=== PATIENT | male | born 1965 | race Caucasian/White ===

== ENCOUNTER → 2016-08-17 | Day surgery (SDC) | payer OTHER ==
[~2016-08-17] MED LIST: BUPIVACAINE HCL PF 0.75% 30 ML VIAL ONE; CLINDAMYCIN PHOS 600 MG/4 ML VIAL ONE; LACTATED RINGER'S 1000 ML INJ 1,000 ML ONE; LIDOCAINE 1.5%/EPINEPHrine 1:200,000 PF SOLN 30 ML AMP ONE; MIDAZOLAM HCL 5 MG/ML VIAL (1 ML) ONE; ONDANSETRON HCL 4 MG/2 ML VIAL IV PUSH ONE; PROPOFOL 500 MG/50 ML BTL IV ONE; VANCOMYCIN HCL 1000 MG VIAL ONE
--- NOTE | 2016-08-17 22:36 | MP ---
cc: LATOSHA BURGOS MD DATE OF SURGERY 08/17/16 PREOPERATIVE DIAGNOSIS Left shoulder rotator cuff tear left shoulder impingement syndrome POSTOPERATIVE DIAGNOSES Left shoulder rotator cuff tear left shoulder impingement syndrome PROCEDURE 1. Left shoulder arthroscopic revision rotator cuff repair 2. Left shoulder arthroscopic subacromial decompression. SURGEON Dr. Jody Burgos CHIEF BUSINESS DEVELOPMENT OFFICER LILI Little ANESTHESIA General with an interscalene block. REVIEW OF SYSTEMS Less than 10 mL COMPLICATIONS None. IMPLANTS USED Arthrex JUSTIFICATION This patient is a 50-year male who injured his left shoulder. He has had a previous left shoulder rotator cuff repair performed, but this repair has failed. He has had severe progressive clinical pain and weakness and also MRI confirmation of full-thickness failed rotator cuff repair with a full-thickness tear and retraction. The patient was counseled as to risks, benefits and alternatives to the above named proposed surgical procedure and he did wish to proceed with surgery. PROCEDURE IN DETAIL A written consent was obtained. The patient identified by name, scalene block anesthesia administered to left upper extremity by the anesthesiologist. The patient taken to the operating room and general anesthesia was administered as well as 600 mg of IV clindamycin and 1 gram of IV vancomycin. He does have a PENICILLIN ALLERGY. The patient was carefully turned to a right lateral decubitus position. A lateral arm roll was placed. All bony prominences and pressure points were well padded. The patient's neck was carefully monitored and kept neutral. Arthroscopic arm aguilera was gently applied to left upper extremity, 10 pounds of traction placed. Left shoulder prepped and draped using isopropyl alcohol, Hibiclens solution and DuraPrep solution. After an appropriate time-out was performed, a posterior and anterior glenohumeral arthroscopic portal was established. There was slight evidence of tearing along the anterior and posterior labrum which was debrided. No significant chondromalacia was noted. There was evidence of a large full-thickness retracted rotator cuff tear involving the anterior portion of the supraspinatus with a large crescent shaped pattern. There was evidence of bursitis and impingement. Arthroscopic shaver ____ removed from lateral portal. A subacromial decompression was performed. The shaver was used to perform a bursectomy. The arthroscopic bur was used to perform an acromioplasty. The cautery device was used to release coracoacromial ligament. The bur was used to decorticate the greater tuberosity in preparation for rotator cuff tendon repair. The prior suture anchor was seen within the bone and the torn sutures were seen as these were debrided with an arthroscopic shaver. At this point, the rotator cuff tendon was mobilized with an elevator and arthroscopic wand. An Arthrex scorpion device was used to shuttle #2 FiberWire suture in a convergent fashion. An arthroscopic sliding knot was used for repair. A second convergent suture using a fiber wire was performed and repaired. This was done to take tension off the repair as the repair was ___ retracted. After both convergent sutures were placed and tied, a third convergent suture with an Arthrex fiber tape was placed as well as a posterior #2 fiber link suture. All of those suture limbs were then placed through the eyelet and an Arthrex 4.75 mm bio-swivel lock anchor. A facilities flight check pilot hole was created in the tuberosity and the sutures were tensioned. The anchor was then inserted used for rotator cuff repair. There was excellent purchase and fixation after insertion of the anchor. The arthroscopic portals were closed with 3-0 Prolene suture. Sterile dressing applied. The patient was placed in a sling and swath immobilizer. He tolerated procedure well with no intraoperative complications noted. Sam Kuo physician orthodontist assistant certified was present during the entire procedure to include patient positioning and the procedure itself. The medical necessity of physician orthodontist assistant was indicated in this case due to the complexity of the procedure. He assisted with appropriate manipulation of the arm and also manipulation of the camera. He assisted with both shuttling of sutures and implantation of suture anchor for purpose of rotator cuff tendon repair. MD MADDIE Valdes/ /8:51 AM /10:25 PM
== END | disposition home or self-care (01) ==
LOC: ESDC 06:14
PROVIDERS: ATTEND Orthopaedic Surgery Sports Medicine
DX: M75.122 Complete rotator cuff tear or rupture of left shoulder, not specified as traumatic (principal); M75.42 Impingement syndrome of left shoulder
CPT/HCPCS: 01630; 01991; 29826; 29827; 64417; C1713; J2250; J2405; J3010; J3370; J7120

== ENCOUNTER → 2017-04-18 | Day surgery (SDC) | payer OTHER ==
[~2017-04-18] MED LIST changes: +BUPIVACAINE/EPINEPHRINE 0.25% 50 ML VIAL ONE; +EPINEPHrine HCL (1:1000) 30 MG/30 ML VIAL OTHER ONE; -LACTATED RINGER'S 1000 ML INJ 1,000 ML ONE; -ONDANSETRON HCL 4 MG/2 ML VIAL IV PUSH ONE; +PROPOFOL 200 MG/20 ML AMP IV ONE; -PROPOFOL 500 MG/50 ML BTL IV ONE; +SODIUM CHLORIDE 0.9% SOLN 100 ML BAG IV ONE; -VANCOMYCIN HCL 1000 MG VIAL ONE
--- NOTE | 2017-04-19 13:25 | MP ---
cc: LATOSHA BURGOS DATE OF SURGERY: 04/18/2017 PREOPERATIVE DIAGNOSES Left shoulder rotator cuff tear, left shoulder impingement syndrome with bursitis, left shoulder labral tear, left shoulder glenohumeral chondromalacia. POSTOPERATIVE DIAGNOSES Left shoulder rotator cuff tear, left shoulder impingement syndrome with bursitis, left shoulder labral tear, left shoulder glenohumeral chondromalacia. PROCEDURE Left shoulder arthroscopic revision rotator cuff repair, left shoulder arthroscopic subacromial decompression, left shoulder arthroscopic extensive debridement of labral tear, left shoulder chondroplasty glenohumeral joint. SURGEON Dr. Latosha Burgos. FOREIGN FOOD SPECIALTY COOK LILI Mcwilliams ANESTHESIA General with interscalene block. ESTIMATED BLOOD LOSS Less than 50 ccs. COMPLICATIONS None. IMPLANTS USED Arthrex. JUSTIFICATION This patient is a 51-year male who sustained multiple trauma to his left shoulder. He has undergone previous surgical repair of his rotator cuff tendon. He was doing well until he had a traumatic injury. He was on a ladder and fell. He tried to grab the ladder with his left arm and was hanging from the ladder. He sustained a re-rupture and tear of his rotator cuff tendon. He complains of severe pain and weakness in regards to his condition and no injury. Clinical exam as well as MRI confirmed the above-named findings. The patient was counseled as to the risks, benefits and alternatives to the above-named proposed surgical procedure and he did wish to proceed with surgery. PROCEDURE IN DETAIL A written consent was obtained. The patient was identified by name and a scalene block anesthesia was administered to the left upper extremity. The patient was taken to the operating room where general anesthesia was administered as well as 900 mg of IV clindamycin as he does have PENICILLIN ALLERGY. With the patient carefully turned to a right lateral decubitus position a lateral arm roll was placed. All bony prominences and pressure points were well padded. The patient's neck was carefully monitored and kept neutral. An arthroscopic arm aguilera was gently applied to the left upper extremity with 10 pounds of traction placed. The left shoulder was prepped and draped using isopropyl alcohol, Hibiclens solution and DuraPrep solution. After a time-out was performed a standard posterior and anterior glenohumeral arthroscopic portal was established. The glenohumeral joint revealed evidence of extensive labral tearing along the anterior superior and posterior aspects. An arthroscopic shaver was introduced from anterior portal and extensive debridement of the labrum was performed to include the anterior 3 o'clock position up to the superior 12 o'clock position and back down to the posterior 9 o'clock position. The biceps origin was intact. There was evidence of chondromalacia of the glenohumeral joint with some unstable cartilage fragmentation along the posterior aspect. Arthroscopic shaver was used to perform a chondroplasty along this portion to debride any unstable cartilage in this region. There was evidence of massive rotator cuff tear involving the supraspinatus and infraspinatus portions with broken FiberWire suture. An arthroscopic shaver was used to perform a debridement and removal of the broken suture initially from the glenohumeral joint and then attention was turned to the subacromial space. Shaver was used to perform extensive bursectomy and subacromial decompression, after bursectomy including subdeltoid recess, an arthroscopic bur was used to perform acromioplasty and scar tissue was released in the region of the coracoacromial ligament. The tear was mobilized with the [place] elevator. There was a large massive retracted anterior portion of the tear as well. At this point an arthroscopic scorpion device was used to shuttle #2 FiberWire suture in a mattress pattern for convergence repair. Four separate convergence sutures were placed to repair the large U-shaped pattern tear and to decrease the tension for surgical repair of the tendon. Subsequently, after last convergence suture was placed a far anterior infarct posterior #2 fiber link suture was placed. All suture limbs were then placed through the eyelet of an Arthrex 4.75 mm bio swivel lock anchor. The suture was tensioned and the anchor was inserted in the greater tuberosity for rotator cuff tendon repair. There is good purchase and fixation after insertion of the suture anchor. At the conclusion of the surgical procedure the arthroscopic portals were closed with 3-0 Prolene suture. Sterile dressing applied. The patient was placed in sling and swath, abduction pillow. He tolerated the procedure well with no intraoperative complications noted. Sam Kuo, physician financial planning assistant certified was present during entire procedure to include patient positioning and the procedure itself. The medical necessity of physician financial planning assistant was indicated in this case due to the complexity of the procedure. He assisted with appropriate manipulation of the arm and also manipulation of the camera. He assisted with shuttling of sutures and also implantation of suture anchor for purpose of rotator cuff tendon repair. MD MADDIE Valdes/ALYSE /2:25 PM /12:54 PM
== END | disposition home or self-care (01) ==
LOC: ESDC 11:09
PROVIDERS: ATTEND Orthopaedic Surgery Sports Medicine
DX: M75.122 Complete rotator cuff tear or rupture of left shoulder, not specified as traumatic (principal); M75.42 Impingement syndrome of left shoulder; M75.52 Bursitis of left shoulder; W11.XXXA Fall on and from ladder, initial encounter; Z88.0 Allergy status to penicillin; M94.212 Chondromalacia, left shoulder; S43.402A Unspecified sprain of left shoulder joint, initial encounter
CPT/HCPCS: 01630; 01991; 29823; 29826; 29827; 64417; C1713; J0171; J2250